=== PATIENT | male | born 1995 | race Caucasian/White ===

== ENCOUNTER → 2020-03-07 | Outpatient (CLI) | payer OTHER ==
[~2020-03-07] MED LIST: HUMA100I3 SC; HYDR-3715 PO; KEFL500C17 PO; LANTINJ4 SC; SYNT75TA PO
== END ==
LOC: M LABSMTC 08:13
PROVIDERS: ATTEND Family Medicine
DX: Z20.822 Contact with and (suspected) exposure to COVID-19 (principal)